=== PATIENT | male | born 1995 | race Caucasian/White ===

== ENCOUNTER 2017-02-24 05:21 | Emergency (ER) | payer OTHER ==
[2017-02-24] MEDS ORDERED: HYDROcodone/Acetaminophen 10/325 mg Tablet ONE (06:26)
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
== END 2017-02-24 07:25 | disposition home or self-care (01) ==
LOC: MADERS 05:21
DX: S00.33XA Contusion of nose, initial encounter (principal); V89.2XXA Person injured in unspecified motor-vehicle accident, traffic, initial encounter
CPT/HCPCS: 70450; 71010; 72125